=== PATIENT | male | born 1995 | race Two or more races ===

== ENCOUNTER 2021-06-05 12:46 | Emergency (ER) | payer OTHER ==
[2021-06-05 12:59] VITALS: BP 138/79
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
--- NOTE | 2021-06-05 14:39 | CT Report ---
PROCEDURE: HEAD WO INDICATIONS: head injury TECHNIQUE: Noncontrast 4.5 mm thick angled axial sections acquired from the foramen magnum to the vertex. For r adiation dose reduction, the following was used: automated exposure control, adjustment of mA and/or kV according to patient size. COMPARISON: None. FINDINGS: Image quality: Excellent. CSF spaces: Basal cisterns are patent. No extra-axial fluid collections. Ventricles are normal in size and shape. Brain: No midline shift. No intracranial masses or hemorrhage. [place]-white matter interface is norm al. Skull and face: Calvarium and visualized facial bones are intact, without suspicious lesions. Sinuses: Visualized sinuses and mastoids are clear. IMPRESSION: 1. No acute intracranial process. Reviewed by: Emelia Paige MD on 06/05/2021 2:37 PM PDT Approved by: Emelia Paige MD on 06/05/2021 2:37 PM PDT Station ID: [id number]
== END 2021-06-05 14:50 | disposition home or self-care (01) ==
LOC: ED 12:46
DX: S06.0X1A Concussion with loss of consciousness of 30 minutes or less, initial encounter (principal); S00.01XA Abrasion of scalp, initial encounter; V18.0XXA Pedal cycle driver injured in noncollision transport accident in nontraffic accident, initial encounter; Y93.55 Activity, bike riding
CPT/HCPCS: 99283; 99284